=== PATIENT | male | born 1975 | race Two or more races ===

== ENCOUNTER 2016-05-13 03:46 | Emergency (ER) | payer MEDICAID ==
[~2016-05-13] VITALS: Ht 177.8 cm; Wt 115.7 kg
[2016-05-13 08:10] VITALS: BP 153/108
[2016-05-13] MEDS ORDERED: KETOROLAC TROMETH 60MG/2ML VIAL IM ONE (08:15)
== END 2016-05-13 08:29 | disposition home or self-care (01) ==
LOC: ER 03:48
DX: S46.001A Unspecified injury of muscle(s) and tendon(s) of the rotator cuff of right shoulder, initial encounter (principal); W01.0XXA Fall on same level from slipping, tripping and stumbling without subsequent striking against object, initial encounter; Y93.89 Activity, other specified; Y99.8 Other external cause status; Y92.89 Other specified places as the place of occurrence of the external cause
CPT/HCPCS: 73030; 96372; 99284; J1885